=== PATIENT | male | born 1990 | race African-American/Black ===

== ENCOUNTER 2018-11-09 12:20 | Emergency (ER) | payer OTHER ==
[~2018-11-09] VITALS: Ht 190.5 cm; Wt 99.8 kg
[2018-11-09] MEDS ORDERED: CORTISPORIN OTI10 M2 OTIC (13:51)
== END 2018-11-09 14:00 | disposition home or self-care (01) ==
LOC: ER 12:20
DX: H60.91 Unspecified otitis externa, right ear (principal)

== ENCOUNTER 2018-11-14 15:50 | Emergency (ER) | payer OTHER ==
[~2018-11-14] VITALS: Ht 190.5 cm; Wt 100.2 kg
[2018-11-14 15:50] VITALS: BP 170/89
[~2018-11-14 15:50] MED LIST: CORTISPORIN OTI10 M2 OTIC
[2018-11-14] MEDS ORDERED: AUGMENTIN 875-1 EACH PO (16:20)
[2018-11-14] MEDS ORDERED: CIPRO250 M1 PO (16:22)
== END 2018-11-14 16:32 | disposition home or self-care (01) ==
LOC: ER 15:50
DX: H60.91 Unspecified otitis externa, right ear (principal)